=== PATIENT | male | born 2000 | race Caucasian/White ===

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

== ENCOUNTER 2023-03-01 18:10 | Emergency (ER) | payer OTHER ==
[~2023-03-01] VITALS: Ht 172.7 cm; Wt 72.6 kg
[2023-03-01 18:22] VITALS: BP 111/71; PULSE 77; RESP 18; TEMP 98; O2SAT 97
[2023-03-01] MEDS ORDERED: IBUP-2213 PO (21:02)
== END 2023-03-01 22:07 | disposition home or self-care (01) ==
LOC: MED 18:10
DX: R07.89 Other chest pain (principal); J45.909 Unspecified asthma, uncomplicated; Z79.899 Other long term (current) drug therapy
CPT/HCPCS: 71045; 93005; 99283